=== PATIENT | female | born 1980 | race Hispanic/Latino ===

== ENCOUNTER 2022-06-14 12:12 | Emergency (ER) | payer OTHER ==
[~2022-06-14] VITALS: Ht 162.6 cm; Wt 89.8 kg
[2022-06-14 14:15] VITALS: BP 126/72
[2022-06-14] MEDS ORDERED: BENZ200C53 PO (14:18)
[2022-06-14] MEDS ORDERED: MOXIOS OD (14:18)
== END 2022-06-14 14:47 | disposition home or self-care (01) ==
LOC: EDH 12:12
DX: B34.9 Viral infection, unspecified (principal); H10.021 Other mucopurulent conjunctivitis, right eye; Z20.822 Contact with and (suspected) exposure to COVID-19; Z79.899 Other long term (current) drug therapy
CPT/HCPCS: 99284; 71045; 87635; 87804 ×2; C9803